=== PATIENT | female | born 1995 | race Caucasian/White ===

== ENCOUNTER → 2017-12-24 | Emergency (ER) | payer BC ==
[~2017-12-24] VITALS: Ht 170.2 cm; Wt 59.0 kg
== END | disposition left against medical advice (07) ==
LOC: ER 08:15
DX: T50.993A Poisoning by other drugs, medicaments and biological substances, assault, initial encounter (principal); R55 Syncope and collapse; Y92.89 Other specified places as the place of occurrence of the external cause